=== PATIENT | male | born 1965 | race Caucasian/White ===

== ENCOUNTER 2017-05-29 20:27 | Inpatient (IN) | payer BC ==
[~2017-05-29] VITALS: Ht 172.7 cm; Wt 75.6 kg
[2017-05-30] VITALS (7 sets, daily range): BP systolic 111–136; BP diastolic 58–89
[2017-05-30] MEDS ORDERED: DEXTROSE 50% SYRINGE 50 ML IV PRN ×2 (07:15)
[2017-05-30] MEDS ORDERED: INSULIN REGULAR, HUMAN 100 UNIT/1 ML 3ML VIAL SQ SCH (07:30)
[2017-05-30 07:33] LABS: BASOPHILS # (AUTO) 0.1 (0.0-0.1); BASOPHILS % 0.5 % (0.0-1.0); EOSINOPHILS # (AUTO) 0.1 (0.0-0.4); EOSINOPHILS % 0.6 % (0.0-6.0); HEMATOCRIT 37.9 % (38.2-49.6); HEMOGLOBIN 12.7 g/dL (14.0-18.0); LYMPHOCYTES # (AUTO) 1.8 (1.0-3.2); LYMPHOCYTES % 10.6 % (18.0-39.1); MEAN CORPUSCULAR HEMOGLOBIN 28.2 pg (28-32); MEAN CORPUSCULAR HGB CONC 33.5 g/dL (31-35); MEAN CORPUSCULAR VOLUME 84.2 fL (81-99); MONOCYTES # (AUTO) 1.2 (0.2-0.8); MONOCYTES % 7.4 % (4.4-11.3); NEUTROPHILS # (AUTO) 13.2 (2.1-6.9); NEUTROPHILS % 79.2 % (38.7-80.0); PLATELET COUNT 552 x10e3/uL (140-360); RED CELL DISTRIBUTION WIDTH 13.6 % (11.7-14.4)
--- NOTE | 2017-05-30 07:57 | History and Physical ---
PRIMARY CARE PHYSICIAN: Dr. Hannah in [place]. CHIEF COMPLAINT: Left arm twitching. HISTORY OF PRESENT ILLNESS: This is a 52-year-old man with a history of diabetes mellitus, type 2, now developing left arm twitching that started on Friday and progressed on Friday, and Friday went to [facility]. There, labs were pending. Patient was transitioned here for further evaluation. Currently, the patient is symptom free. Denies any chest pain or shortness of breath. Denies any drug use. Denies any history of seizures. Denies any history of stroke. Patient denies any slurred speech, any change in speech, any focal weakness, or any gait disturbance. PAST MEDICAL HISTORY: Diabetes mellitus, type 2, BPH. PAST SURGICAL HISTORY: I and D of furuncles/carbuncle in January. ALLERGIES: PER ELECTRONIC MEDICAL RECORDS. FAMILY HISTORY/SOCIAL HISTORY: Patient is single. He has 1 child. He denies any alcohol or illicits. 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 Denies any cigarette use. MEDICATIONS: Per electronic medical records. REVIEW OF SYSTEMS: Denies any dizziness or chest pain. PHYSICAL EXAMINATION VITAL SIGNS: Have been reviewed and within normal limits. GENERAL: A tired-appearing man resting in chair. HEENT: Anicteric. Pupils respond to light. No oral lesions. CARDIOVASCULAR: Normal S1 and S2. LUNGS: Moderate breath sounds. ABDOMEN: Soft, nontender and nondistended. EXTREMITIES: No edema or calf tenderness. NEUROLOGICAL: Alert and oriented times 3. Moving all extremities. SKIN: Dry. PSYCHIATRIC: Normal affect. LABS: Reviewed. MEDICATIONS: Reviewed. ASSESSMENT AND PLAN: This is a 52-year-old man with: 1. Questionable seizure/left arm tremors: Neurology has been consulted. Computerized tomography at the outside facility showed no acute intracranial abnormality. Will also obtain a urine toxicology and urinalysis. Will get a sed rate and TSH. Will also check a B12 level. 2. Diabetes mellitus, type 2: Get hemoglobin A1c and lipid panel. Using sliding scale insulin and hold metformin at this time. 3. Overweight state: Body mass index 25.3. Will get hemoglobin A1c. 4. Prophylaxis: Will use Lovenox and Pepcid. 5. Disposition: Will follow neurology recommendations. Follow up labs and get physical therapy on board. Job#: [id number] RI
[2017-05-30 08:01] LABS: ALBUMIN 2.6 g/dL (3.5-5.0); ANION GAP 14.6 mmol/L (8-16); BILIRUBIN,DIRECT 0.2 mg/dL (0.0-5.0); CALCIUM 9.3 mg/dL (8.4-10.2); CREATININE, SERUM 1.5 mg/dL (0.72-1.25); MAGNESIUM 1.7 MG/DL (1.3-2.1); PHOSPHORUS 3.6 MG/DL (2.3-4.7); POTASSIUM 4.6 mmol/L (3.5-5.1)
[2017-05-30 08:08] LABS: ERYTHROCYTE SEDIMENTATION RATE 97 mm/hr (0-13)
[2017-05-30 08:23] LABS: THYROID STIMULATING HORMONE 2.12 uIU/mL (0.350-4.940)
[2017-05-30 08:24] LABS: CHOL/HDL RATIO 4.4 (3.9-4.7)
[2017-05-30] MEDS: CANAGLIFLOZIN 100 MG TABLET PO SCH ×2 (08:27→09:20)
[2017-05-30] MEDS: INSULIN REGULAR, HUMAN 100 UNIT/1 ML 3ML VIAL SQ SCH ×4 (09:20→20:15)
[2017-05-30] MEDS: FAMOTIDINE 20 MG TAB PO SCH ×2 (09:20→17:23)
[2017-05-30] MEDS: METFORMIN HCL 500 MG TAB PO SCH ×2 (09:20→17:22)
[2017-05-30 12:48] LABS: BILIRUBIN,URINE NEGATIVE (NEGATIVE); KETONES,URINE NEGATIVE (NEGATIVE); LEUKOCYTE ESTERASE ,URINE 2+ (NEGATIVE); NITRITE,URINE NEGATIVE (NEGATIVE); URINE UROBILINOGEN 0.2 mg/dL (0.2 - 1)
[2017-05-30 13:03] LABS: CLARITY,URINE CLOUDY (CLEAR); COLOR,URINE YELLOW (YELLOW); PROTEIN,URINE DIPSTICK 1+ (NEGATIVE)
[2017-05-30 13:04] LABS: BACTERIA,URINE FEW /HPF; EPITHELIAL CELLS,URINE FEW /LPF; WBC,URINE (MAN) 21-50 /HPF (0-5)
[2017-05-30 13:06] LABS: AMPHETAMINES SCREEN,URINE NEGATIVE (NEGATIVE); BENZODIAZEPINES SCREEN,URINE NEGATIVE (NEGATIVE); CANNABINOIDS SCREEN,URINE NEGATIVE (NEGATIVE); PHENCYCLIDINE SCREEN,URINE NEGATIVE (NEGATIVE)
--- NOTE | 2017-05-30 15:52 | Consultation ---
DATE OF CONSULTATION: May 30, 2017, at 11 o'clock in the morning. NEUROLOGICAL CONSULTATION A patient of Dr. Robert Lamb. REASON FOR CONSULTATION: Possible seizure. HISTORY OF PRESENT ILLNESS: This is a 52-year-old male who has a history of hypertension and diabetes mellitus. The patient has been the last 3 days complaining of some intermittent jerking of the left arm lasting for a short period of time, not associated with headache, not associated with visual disturbance, no speech nor swallowing difficulty. Not associated with focal paresthesia or focal weakness. The patient denies any previous episode like this in the past. PAST SURGICAL HISTORY: Negative. ALLERGIES: NONE KNOWN. SOCIAL HISTORY: He said he does not drink or smoke. He is single. LIST OF MEDICATION: Has been reviewed. REVIEW OF SYSTEMS: All 12 steps negative except as described above. PHYSICAL EXAMINATION GENERAL: The patient is lying comfortably, feeling okay with no complaints, no headaches, no dizziness, no speech nor swallowing difficulty. VITAL SIGNS: Blood pressure is 113/74, pulse 93, temperature 98. The previous check of the temperature has been 99.3. Since in the hospital, I see the temperature has been between 99, 99.3, 98.7, and the pulse has been 102, 92, 102, 93. LUNGS: Clear to auscultation. HEART: Regular sinus, tachycardia. ABDOMEN: Soft. No tenderness. No organomegaly. MUSCULOSKELETAL: No edema, no cyanosis in the lower extremities. NEUROLOGIC Mental status: Alert, oriented x3. Speech clear. Cranial nerves: Pupils were both equal and reactive. External ocular movements were full. Visual field was normal. No facial weakness. Tongue protrudes midline. Motor power: Upper and lower extremities show no evidence of weakness in either proximal or distal muscles in either of both upper or lower extremities. Plantar stimulation is down bilaterally. Coordination: [id number] is normal. Gait: Normal. At the present time, patient does not have any kind of tremor or jerking of the arms or the legs. I have reviewed the CAT scan that was done at another emergency room, which is negative. IMPRESSION 1. Intermittent jerking of the left arm, questionable seizure. 2. The white count is being elevated now. It is being 16,600, which yesterday when they did another blood test in the other hospital was 9000. Definitely I think there is some kind of infection going on. 3. Diabetes mellitus. 4. Hypertension. RECOMMENDATION: MRI of the brain without contrast. Urine and blood culture, and we will be discussing with the attending physician. Job#: [id number] EV
[2017-05-30] MEDS: ACETAMINOPHEN 325 MG TAB PO PRN ×2 (17:22→23:53)
[2017-05-30] MEDS: ENOXAPARIN SOD INJ 40 MG/0.4 ML SYR SC SCH (17:22)
[2017-05-30] MEDS: CEFEPIME HCL 1 GM VIAL IV SCH (18:00)
[2017-05-30] MEDS: TAMSULOSIN HCL 0.4 MG CAP PO SCH (20:03)
[2017-05-31] VITALS: BP 128/64
[2017-05-31 04:00] VITALS: BP 108/65
[2017-05-31] MEDS: INSULIN REGULAR, HUMAN 100 UNIT/1 ML 3ML VIAL SQ SCH ×2 (07:30→11:30)
[2017-05-31] MEDS: CANAGLIFLOZIN 100 MG TABLET PO SCH (08:27)
[2017-05-31] MEDS: FAMOTIDINE 20 MG TAB PO SCH ×2 (08:27→17:30)
[2017-05-31] MEDS: METFORMIN HCL 500 MG TAB PO SCH ×2 (08:27→17:30)
[2017-05-31 08:32] VITALS: BP 114/57
[2017-05-31] MEDS ORDERED: SODIUM CHLORIDE 0.9% 1000ML 1,000 ML IV SCH (11:45)
[2017-05-31 14:18] VITALS: BP 128/73
[2017-05-31] MEDS: INSULIN LISPRO 100 UNIT/1 ML 3ML VIAL SQ SCH ×3 (16:30→20:20)
[2017-05-31] MEDS: CEFEPIME HCL 1 GM VIAL IV SCH (17:30)
[2017-05-31] MEDS: ENOXAPARIN SOD INJ 40 MG/0.4 ML SYR SC SCH (17:30)
[2017-05-31 17:39] LABS: FREE T4 (FREE THYROXINE) 0.77 ng/dL (0.8-1.8); THYROID STIMULATING HORMONE 2.7 uIU/mL (0.350-4.940)
[2017-05-31 17:48] VITALS: BP 148/77
[2017-05-31 20:00] VITALS: BP 112/67
[2017-05-31] MEDS ORDERED: INSULIN DETEMIR 100 UNIT/ML PEN SQ SCH (21:00)
[2017-05-31] MEDS: TAMSULOSIN HCL 0.4 MG CAP PO SCH (21:05)
[2017-06-01] VITALS: BP 104/59
[2017-06-01 04:00] VITALS: BP 110/63
[2017-06-01] MEDS: INSULIN LISPRO 100 UNIT/1 ML 3ML VIAL SQ SCH ×2 (07:30)
--- NOTE | 2017-06-01 07:59 | Consultation ---
DATE OF CONSULTATION: May 31, 2017 ENDOCRINE CONSULTATION This is a patient of Dr. Lamb. Thank you very much for referring this patient. HISTORY OF PRESENT ILLNESS: This is a 52-year-old white gentleman who is referred to me for evaluation of uncontrolled diabetes mellitus. The patient reportedly is a known diabetic for almost 10 to 12 years and takes a combination of the Invokana and the metformin at this time. Patient has been complaining of significant weight loss, about 22 pounds in the last couple of years. He is complaining of dry mouth as well as recurrent urinary tract infections. This time the patient came to the hospital because of the uncontrolled shakiness of his left upper extremity associated with recurrent urinary tract infections. During the hospital stay, the blood sugars at the time of admission were 365 and presently they are in the ranges of 296 and 326. His hemoglobin A1c is significantly elevated at 14.7. Patient also has high blood white count. PHYSICAL EXAMINATION: GENERAL: Today the patient is alert, awake, a little bit apprehensive. He is thin built. VITAL SIGNS: His heart rate is around 78. Blood pressure 130/80 mmHg. HEENT: Examination essentially unremarkable. Thyroid is palpable. Clinically he is near euthyroid. CHEST: Bilateral vesicular breathing. He has bilateral bronchospasm. CARDIAC: Both 1st and 2nd heart sounds. There is no 3rd or 4th heart sound. Ejection sound grade 2/6. 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 CLINICAL IMPRESSION: 1. Diabetes mellitus probably type 1 or GURDEEP, late-onset autoimmune diabetes. 2. Recurrent urinary tract infection. 3. Benign prostatic hypertrophy. 4. Seizures. The plan at this time is to discontinue the Invokana because of the recurrent urinary tract infections. Start him on the Levemir and the Humalog insulin. 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 Will go ahead and start him on the basal bolus insulin therapy and follow him closely. Thanks for referring this patient. I will be following this patient with you. Job#: [id number] EV MTDD
[2017-06-01 08:42] LABS: BASOPHILS % 0.4 % (0.0-1.0); EOSINOPHILS # (AUTO) 0.2 (0.0-0.4); EOSINOPHILS % 1.4 % (0.0-6.0); HEMOGLOBIN 10.3 g/dL (14.0-18.0); LYMPHOCYTES # (AUTO) 1.5 (1.0-3.2); LYMPHOCYTES % 14.1 % (18.0-39.1); MEAN CORPUSCULAR HEMOGLOBIN 27.7 pg (28-32); MEAN CORPUSCULAR HGB CONC 33.2 g/dL (31-35); MEAN CORPUSCULAR VOLUME 83.3 fL (81-99); MONOCYTES # (AUTO) 0.7 (0.2-0.8); MONOCYTES % 6.5 % (4.4-11.3); NEUTROPHILS % 76.7 % (38.7-80.0); PLATELET COUNT 472 x10e3/uL (140-360); RED BLOOD COUNT 3.72 x10e6/uL (4.3-5.7); RED CELL DISTRIBUTION WIDTH 13.4 % (11.7-14.4)
[2017-06-01 09:27] LABS: ANION GAP 11.5 mmol/L (8-16); BLOOD UREA NITROGEN 15 mg/dL (7-26); BUN/CREATININE RATIO 13 (6-25); CALCIUM 8.6 mg/dL (8.4-10.2); CARBON DIOXIDE 28 mmol/L (22-29); CHLORIDE 105 mmol/L (98-107); CREATININE, SERUM 1.13 mg/dL (0.72-1.25); EST GLOMERULAR FILTRATION RATE > 60 ML/MIN (60-); GLUCOSE 94 mg/dL (74-118); POTASSIUM 3.5 mmol/L (3.5-5.1); SODIUM 141 mmol/L (136-145)
[2017-06-01] MEDS: METFORMIN HCL 500 MG TAB PO SCH (09:47)
[2017-06-01] MEDS: FAMOTIDINE 20 MG TAB PO SCH (09:47)
[2017-06-01] MEDS ORDERED: METFORMIN HCL500 MG PO (10:27)
[2017-06-01] MEDS ORDERED: KEFLEX500 MG PO (10:27)
[2017-06-01] MEDS ORDERED: FLOMAX0.4 MG PO (10:27)
[2017-06-01 13:21] VITALS: BP 125/69
[2017-06-01 16:37] VITALS: BP 111/59
--- NOTE | 2017-06-02 23:36 | Consultation ---
DATE OF CONSULTATION: REASON FOR CONSULTATION: UTI. Thank you so much for asking me to see this patient. HISTORY OF PRESENT ILLNESS: This patient who is a 52-year-old white male, who has history of diabetes mellitus type 2, comes in with left arm twitching. Patient came to the emergency room where he was admitted. He has been seen by neurology. Urine cultures came back positive. Infectious disease was consulted to see the patient. The patient, who is currently alert, oriented, has no complaints, he is ready to be discharged home. PAST MEDICAL HISTORY: Diabetes mellitus which he has more than 10 years. He has been on Invokana and metformin. The patient also has been having problem with the bladder, recurrent UTI, benign prostatic hypertrophy, seizure disorder. PAST SURGICAL HISTORY: Denies. ALLERGIES: NKA. SOCIAL HISTORY: There is no smoking, drug abuse, alcohol abuse. FAMILY HISTORY: Otherwise unremarkable. REVIEW OF SYSTEMS: HEENT: Negative. PULMONARY: Negative. CARDIAC: Negative. IMPRESSION: 1. Urinary tract infection. 2. Pyelonephritis. Patient is clinically better with Klebsiella pneumoniae. Could be discharged home with Keflex 500 mg p.o. q.8. for 2 more weeks. Recheck complete blood cell count, recheck chemistry panel, recheck urine cultures as outpatient. Discussed with the patient. Other medical problems, diabetes mellitus, possible seizure per neurology. Thank you. Job#: [id number]
--- NOTE | 2017-06-04 00:11 | Discharge Summary ---
ADMITTING DIAGNOSES 1. Focal versus spinal lesions. 2. Left arm twitching. 3. Diabetes. 4. Overweight. DISCHARGE DIAGNOSES 1. Focal versus spinal lesions. 2. Left arm twitching. 3. Diabetes. 4. Overweight. 5. Benign prostatic hypertrophy for which patient self caths. 6. Recurrent urinary tract infection. HISTORY: Diabetes type 2, BPH, and I and D of carbuncle in January. HOSPITAL COURSE: [id number]-old male presents with left arm twitching that started on Friday and progressed Friday. Friday, he went to a facility called [facility], [place] and the patient was transferred to [facility] for further evaluation. The outpatient CAT scan was negative, chest x-ray was negative. Upon admission, the patient had a urine culture done, which showed Klebsiella, antibiotics were started. Neurology was consulted for the questionable seizure, upon which time neurology discharged the patient. A urine drug screen was also done, which was negative. Hemoglobin A1c was collected, which showed A1c of 14.7. 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 He is between [place] and [place] and goes back and forth to whichever doctor he is closest to. For his BPH, the patient admits to being under a urologist care, having a workup done for BPH. He says he has to self cath frequently and says he does use hand lining feller blindstitch before cathing himself. ID was consulted due to recurrent UTIs, self cath, and patient admitted to a history of STDs x2 for which he could not remember when or what type of STD. Endocrinology was also consulted to see if he and the patient could come to an agreement on which medication would work best for him and he was more likely to be compliant with. Upon discharge, ID prescribed Keflex for the patient for 2 weeks. Endocrinology resumed the patient's metformin, stopped the Invokana, and gave him a prescription for Levemir and Amaryl. Patient was encouraged to be compliant with medications and follow up as requested. At the time, patient agrees. Dictated by Nevaeh Patel NP SHELLY SPRINGER MD Job#: [id number]
== END 2017-06-01 17:55 | disposition home or self-care (01) | DRG 101 ==
LOC: MED/SURG 05-30 00:54
PROVIDERS: ADMIT Internal Medicine; ATTEND Internal Medicine
DX: R56.9 Unspecified convulsions (principal); N17.9 Acute kidney failure, unspecified; E11.40 Type 2 diabetes mellitus with diabetic neuropathy, unspecified; E11.65 Type 2 diabetes mellitus with hyperglycemia; N39.0 Urinary tract infection, site not specified; R25.1 Tremor, unspecified; Z87.440 Personal history of urinary (tract) infections; B96.1 Klebsiella pneumoniae [K. pneumoniae] as the cause of diseases classified elsewhere; E66.3 Overweight; Z68.25 Body mass index [BMI] 25.0-25.9, adult; N31.9 Neuromuscular dysfunction of bladder, unspecified; Z91.19 Patient's noncompliance with other medical treatment and regimen; N40.1 Benign prostatic hyperplasia with lower urinary tract symptoms; R33.8 Other retention of urine; Z79.4 Long term (current) use of insulin
CPT/HCPCS: 36415; 80048; 80061; 80076; 80307; 81001; 82607; 82948; 83036; 83735; 84100; 84439; 84443; 85025; 85651; 87040; 87086; 87186; J0692; J1650; J7030